=== PATIENT | female | born 1990 | race African-American/Black ===

== ENCOUNTER 2019-04-13 18:40 | Emergency (ER) | payer MEDICAID ==
[~2019-04-13] VITALS: Ht 160 cm; Wt 68.0 kg
[~2019-04-13 18:40] MED LIST: PROVENTIL
[2019-04-13 18:55] VITALS: BP 124/84
== END 2019-04-13 22:30 | disposition left against medical advice (07) ==
LOC: ER 18:40
DX: Z53.21 Procedure and treatment not carried out due to patient leaving prior to being seen by health care provider (principal)

== ENCOUNTER 2019-05-15 12:31 | Emergency (ER) | payer MEDICAID ==
[~2019-05-15] VITALS: Ht 160 cm; Wt 59.0 kg
[2019-05-15] MEDS ORDERED: KETOROLAC 60MG/2ML VIAL IM ONE (15:15)
[2019-05-15 15:35] VITALS: BP 138/84
== END 2019-05-15 16:39 | disposition home or self-care (01) ==
LOC: ER 12:31
DX: G89.29 Other chronic pain (principal); M54.5 Low back pain
CPT/HCPCS: 81025; 96372; 99283; J1885